=== PATIENT | male | born 1935 | race Caucasian/White ===

== ENCOUNTER 2017-11-25 11:20 | Day surgery (SDC) | payer OTHER, BC ==
[2017-11-21 17:45] VITALS: BMI 24.2
[2017-11-25] MEDS ORDERED: BUPIVACAINE HCL/PF 2.5 MG/ML - 30 ML VIAL IJ ONE (14:16)
[2017-11-25] MEDS ORDERED: ePHEDrine SULFATE 50 MG/1 ML AMPULE ONE (14:48)
[2017-11-25] MEDS ORDERED: oxyCODONE HCL 5 MG TABLET PO PRN ×2 (15:05)
[2017-11-25] MEDS ORDERED: PROMETHAZINE HCL 25 MG/1 ML VIAL IVPUSH PRN (15:05)
[2017-11-25] MEDS ORDERED: ONDANSETRON 4 MG/2 ML VIAL IVPUSH PRN (15:05)
[2017-11-25 16:41] VITALS: BP 139/80; PULSE 65; TEMP 98
--- NOTE | 2017-11-27 22:49 | OP ---
DATE OF OPERATION: 11/25/2017 SURGEON: Lee Bentley M.D. PUBLIC HEALTH DIETITIAN: Ashlee Barboza PREOPERATIVE DIAGNOSIS: 1. Left knee medial lateral meniscal tear. 2. Left knee cartilage injury. 3. Left knee synovitis. POSTOPERATIVE DIAGNOSIS: 1. Left knee medial lateral meniscal tear. 2. Left knee cartilage injury. 3. Left knee synovitis. PROCEDURE: 1. Left knee arthroscopy, partial meniscectomy medial and lateral meniscus. 2. Left knee arthroscopy with chondroplasty and abrasion plasty. 3. Left knee arthroscopy with synovectomy including removal of medial plica. FINDINGS: 1. Medial meniscus body and posterior horn tear. 2. Lateral meniscus posterior horn tear. 3. Synovitis patellofemoral medial lateral notch area with medial plica. 4. Antegrade 1 to 2 cartilage injury medial femoral condyle. 6. ACL and PCL intact. 7. Antegrade 2 cartilage injury lateral tibial plateau. 7. Central grade 2 cartilage injury patella with antegrade 2 to 4 changes and anterior medial grade 4 changes patellofemoral trochlea. PROCEDURE: Informed consent was obtained. The patient came to the operating room, where the lower extremity was prepped and draped in a sterile fashion. A tourniquet was placed on the upper thigh, but not inflated. Using standard arthroscopic technique, a lateral incision and portal was made to allow for introduction of the camera into the suprapatellar bursa. This was then taken to the medial joint line, where under direct visualization, a medial incision and portal was made. Excessive synovium noted in the medial, lateral and patellofemoral and notch area was removed by an upbiter, shaver and Bovie cautery. This was found to bring in inflammatory tissue into the joint surface, a source of pain and dysfunction. Probing of the medial and lateral meniscus found tears, as described in the findings. These were removed with the upbiter and shaver and taken back to a stable rim. Grade 2 to 3 degenerative changes were treated with a chondroplasty, removing all flaking surfaces with low-setting Bovie along the periphery to prevent further flaking. Grade 4 changes, as noted, were treated with an abrasoplasty, creating a bleeding surface at the bone/cartilage interface. Aggressive debridement with shaver/michelle created bleeding surface. Mirco fracture also done when indicated in findings All areas of the knee were once again reexamined. The knee was then drained and a single suture was placed in all portals. A sterile dressing was placed and the patient was transferred to the recovery room without complication. LEE BENTLEY M.D. [id number]
--- NOTE | 2017-11-30 16:08 | PATH ---
Surgical Pathology Report Patient Name: PAM ROQUE [facility]. Rec. #: [id number] /Age/Gender: 1935 (Age: 82) / M Account: [id number] Location: [facility] AMBUL[facility] Taken: 11/25/2017 Received: 11/25/2017 Reported: 11/30/2017 Physicians: Lee Case M.D. Specimen(s) Received LEFT KNEE SHAVINGS Clinical History Left knee shavings Final Diagnosis KNEE, LEFT, ARTHROSCOPIC SHAVINGS: FIBROSYNOVIAL TISSUE AND CARTILAGE. Electronically Signed Tierra Shin M.D. Gross Description Received in formalin, labeled "left knee shavings," is a 4.3 x 3.8 x 0.3 cm. aggregate of yuen-yellow soft tissue fragments. A textile machinery sales representative portion is submitted in one cassette. /11/28/2017 saudi11/28/2017
== END 2017-11-25 16:40 | disposition home or self-care (01) ==
LOC: FASU 11:20
PROVIDERS: ATTEND Orthopaedic Surgery
PROC: 0SBD4ZZ Excision of Left Knee Joint, Percutaneous Endoscopic Approach (ICD-10-PCS; 2017-11-25)
PROC: 0SBD4ZZ Excision of Left Knee Joint, Percutaneous Endoscopic Approach (ICD-10-PCS; 2017-11-25)
PROC: 0SBD4ZZ Excision of Left Knee Joint, Percutaneous Endoscopic Approach (ICD-10-PCS; principal; 2017-11-25 14:30)
DX: S83.242A Other tear of medial meniscus, current injury, left knee, initial encounter (principal); S83.282A Other tear of lateral meniscus, current injury, left knee, initial encounter; M65.862 Other synovitis and tenosynovitis, left lower leg; X58.XXXA Exposure to other specified factors, initial encounter; Y93.9 Activity, unspecified; Y92.9 Unspecified place or not applicable
CPT/HCPCS: 88304-TC; 94760